=== PATIENT | male | born 1945 | race Caucasian/White ===

== ENCOUNTER 2017-02-08 19:26 | Emergency (ER) | payer MEDICARE ==
[2017-02-08 20:12] VITALS: BP 144/72
[2017-02-08] MEDS ORDERED: Sulfamethox/Trimethoprim DS 800/160* TAB PO ONE (21:39)
--- NOTE | 2017-02-08 21:59 | UC ---
Hand/Wrist HPI - HPI Summary HPI Summary: patient states had abscess on right middle finger for ~ 5day, lanced this weekend with sterile needle, + purulent material, lanced again this AM after increased redness spreading to MCP with increased pain, patients states "a lot" of purlent material came out, contined to squeeze until all drained, recommended he be seen for abx, tx. no prior injuries, no immunocomp, no dm no fever, chills, or joint apins - History Of Current Complaint Chief Complaint: UCSkin Stated Complaint: FINGER COMPLAINT Time Seen by Provider: 02/08/17 21:19 Hx Obtained From: Patient Hx From Patient Unobtainable Due To: Dementia ?: No Onset/Duration: Sudden Onset, Lasting Days Severity Currently: Mild Character Of Pain: Aching Alleviating Factor(s): Nothing Associated Signs And Symptoms: Positive: Swelling, Redness - Allergies/Home Medications Allergies/Adverse Reactions: Allergies Allergy/AdvReac Type Severity Reaction Status Date / Time No Known Allergies Allergy Verified 02/08/17 20:12 Home Medications: Home Medications Multiple Vitamins W/ Minerals [Preservision Areds 2 + Mu] 1 cap PO BID 02/08/17 [History Confirmed 02/08/17] PMH/Surg Hx/FS Hx/Imm Hx Previously Healthy: Yes - Surgical History Surgical History: Yes Surgery Procedure, Year, and Place: R shoulder repair/heart cath x8, 2 tents/T& A/bilat bicep repair - Family History Known Family History: Positive: Cardiac Disease, Hypertension - Social History Alcohol Use: Rare Substance Use Type: None Smoking Status (MU): Never Smoked Tobacco - Immunization History Most Recent Influenza Vaccination: not Review of Systems Skin: Rash - rednes over base of middle finger Is Patient Immunocompromised?: No All Other Systems Reviewed And Are Negative: Yes Physical Exam Triage Information Reviewed: Yes Appearance: Well-Appearing, No Pain Distress, Well-Nourished Vital Signs: Initial Vital Signs Temp 98.1 F 02/08/17 20:07 Pulse 77 02/08/17 20:07 Resp 16 02/08/17 20:07 BP 144/72 02/08/17 20:07 Pulse Ox 99 02/08/17 20:07 Vital Signs Reviewed: Yes Eyes: Positive: Conjunctiva Clear Musculoskeletal: Positive: Strength Intact, ROM Intact - to all fingers, joints on L hand, Other: - erythema on middle PIP to MCP, + blanching, no fluctuant mass, + mild inderation aroudn middle finger ~ 1cm, non-tender to touch, no tenderness over hand, middle MCP, middle DIP or PIP. Neurological Exam: Normal Neurological: Positive: Other: - sensation intact to midle finger and hand to light touch Psychological Exam: Normal Hand/Wrist Course/Dx - Course Course Of Treatment: unable to willian and no fluid collection palpable. + erythema, abx given and contineu to monitor, follow up wtih ortho warm soapy water soaks x 3 daily to encourage drainage. no other questions/ concerns. - Differential Dx/Diagnosis Differential Diagnosis/HQI/PQRI: Cellulitis Provider Diagnoses: cellulitis, right middle finger Discharge - Discharge Plan Condition: Good Disposition: HOME Prescriptions: Sulfamethox/Trimethoprim DS* [Bactrim DS 800/160 TAB*] 1 tab PO BID #14 tab Patient Education Materials: Cellulitis (ED) Referrals: Malachi Trinidad MD [Primary Care Provider] - Additional Instructions: - Warm soapy water soaks to finger three times a day to help drainage - Bactrim twice daily for 7 days - FOllow up with orthopedics or primary physician within 2-3 days if no improvement - Go immediately to ER if pain with moving fingers, increased redness, warmth, swelling, fever, chills
== END 2017-02-08 22:03 | disposition home or self-care (01) ==
LOC: UCCORT 19:26
DX: L03.011 Cellulitis of right finger (principal)
CPT/HCPCS: 99212; A9270-GY; G0463

== ENCOUNTER 2017-04-24 12:27 | Emergency (ER) | payer MEDICARE ==
[2017-04-24 13:15] VITALS: BP 152/84
--- NOTE | 2017-04-24 13:32 | UC ---
Respiratory Complaint HPI - HPI Summary HPI Summary: 71 yo male with nasal congestion/post nasal drip and facial pressure x 3-4 weeks no f/c - History of Current Complaint Chief Complaint: UCRespiratory Stated Complaint: EAR COMPLAINT/ST Time Seen by Provider: 04/24/17 13:16 Hx Obtained From: Patient Onset/Duration: Gradual Onset, Lasting Weeks Timing: Constant Severity Initially: Mild Severity Currently: Moderate Pain Intensity: 4 Pain Scale Used: 0-10 Numeric Character: Cough: Nonproductive Aggravating Factors: Nothing Alleviating Factors: Nothing Associated Signs And Symptoms: Positive: Nasal Congestion, Sinus Discomfort - Allergies/Home Medications Allergies/Adverse Reactions: Allergies Allergy/AdvReac Type Severity Reaction Status Date / Time Azithromycin Allergy Hives Verified 04/24/17 13:09 Home Medications: Home Medications Clopidogrel TAB* [Plavix TAB*] 75 mg PO DAILY 04/24/17 [History Confirmed ] PMH/Surg Hx/FS Hx/Imm Hx Previously Healthy: Yes Endocrine History: Dyslipidemia Cardiovascular History: Cardiac Disease, Hypertension - Surgical History Surgical History: Yes Surgery Procedure, Year, and Place: R shoulder repair/heart cath x8, 2 tents/T& A/bilat bicep repair - Family History Known Family History: Positive: Cardiac Disease, Hypertension - Social History Alcohol Use: Rare Substance Use Type: None Smoking Status (MU): Never Smoked Tobacco - Immunization History Most Recent Influenza Vaccination: not Review of Systems Constitutional: Negative Skin: Negative Eyes: Negative ENT: Nasal Discharge, Sinus Congestion, Sinus Pain/Tenderness Respiratory: Negative Cardiovascular: Negative Gastrointestinal: Negative Genitourinary: Negative Motor: Negative Neurovascular: Negative Musculoskeletal: Negative Neurological: Negative Psychological: Negative Is Patient Immunocompromised?: No All Other Systems Reviewed And Are Negative: Yes Physical Exam Triage Information Reviewed: Yes Appearance: Well-Appearing, No Pain Distress, Well-Nourished Vital Signs: Initial Vital Signs Temp 98 F 04/24/17 13:11 Pulse 68 04/24/17 13:11 Resp 18 04/24/17 13:11 BP 152/84 04/24/17 13:11 Pulse Ox 98 04/24/17 13:11 Vital Signs Reviewed: Yes Eyes: Positive: Conjunctiva Clear ENT: Positive: Hearing grossly normal, Nasal congestion, Nasal drainage, Sinus tenderness - L>R max sinus tenderness Neck: Positive: Supple, Nontender, No Lymphadenopathy Respiratory: Positive: Lungs clear, Normal breath sounds, No respiratory distress, No accessory muscle use Cardiovascular: Positive: RRR, No Murmur, Pulses Normal Musculoskeletal: Positive: ROM Intact, No Edema Neurological: Positive: Alert Psychological Exam: Normal Skin Exam: Normal UC Diagnostic Evaluation - Laboratory O2 Sat by Pulse Oximetry: 98 - normal/not hypoxic Respiratory Course/Dx - Differential Dx/Diagnosis Provider Diagnoses: acute sinusitis Discharge - Discharge Plan Condition: Stable Disposition: HOME Prescriptions: Amoxicillin PO (*) [Amoxicillin 875 MG (*)] 875 mg PO BID #20 tab Patient Education Materials: Sinusitis (ED) Referrals: Malachi Trinidad MD [Primary Care Provider] - 5 Days (if not better)
== END 2017-04-24 13:36 | disposition home or self-care (01) ==
LOC: UCCORT 12:27
DX: J01.90 Acute sinusitis, unspecified (principal); I51.9 Heart disease, unspecified
CPT/HCPCS: 99212; G0463